=== PATIENT | male | born 1955 | race Caucasian/White ===

== ENCOUNTER 2019-11-06 15:14 | Inpatient (IN) | payer MEDICAID, OTHER, SELFPAY ==
[~2019-11-06] VITALS: Ht 165.1 cm; Wt 72.6 kg
[2019-11-06] MEDS ORDERED: PIPERACILLIN/TAZ 3.375G PREMIX 50 ML IV ONE (16:00)
[2019-11-06] MEDS ORDERED: SODIUM CHLORIDE 0.9% 1000ML BAG (SEPSIS BOLUS) IV ONE (16:00)
[2019-11-06 17:04] LABS: BASOPHILS % 0.7 % (0.0-2.0); EOSINOPHILS % 3.2 % (0.0-5.0); HEMATOCRIT. 41.1 % (42.0-52.0); HEMOGLOBIN. 13.6 g/dL (14.0-18.0); LYMPHOCYTES % 8.5 % (20.0-50.0); MEAN CORPUSCULAR HEMOGLOBIN 28.9 pg (28.0-32.0); MEAN CORPUSCULAR VOLUME 87.3 fL (80.0-94.0); MEAN PLATELET VOLUME 9.2 fl (7.4-10.4); NEUTROPHILS % 74.6 % (40.0-76.0); PLATELET 260 x1000/uL (130-400); RED BLOOD CELL COUNT 4.71 mill/uL (4.7-6.1); RED CELL DISTRIBUTION WIDTH 14.1 % (11.6-14.6)
[2019-11-06 17:08] LABS: CHLORIDE 96 mEq/L (98-107)
[2019-11-06 17:10] LABS: CLARITY URINE CLEAR (CLEAR); COLOR URINE YELLOW (YELLOW); KETONES URINE NEGATIVE (NEGATIVE); LEUKOCYTE ESTERASE URINE NEGATIVE (NEGATIVE); NITRITE URINE NEGATIVE (NEGATIVE); OCCULT BLOOD URINE NEGATIVE (NEGATIVE); PROTEIN URINE 1+ (NEGATIVE); SPECIFIC GRAVITY URINE 1.036 (1.005-1.030)
[2019-11-06 17:17] LABS: INR 1.1; PROTHROMBIN TIME 11.6 sec (9.6-11.0)
[2019-11-06] MEDS ORDERED: INSULIN REGULAR (HUMULIN R) UD 100 UNITS/ML SYR SUBCUT ONE (17:30)
[2019-11-06] MEDS ORDERED: INSULIN REGULAR (HUMULIN R) 300UNITS/3ML SUBCUT NR (17:30)
[2019-11-06] MEDS ORDERED: ACETAMINOPHEN 325MG SUPP PR ONE (19:15)
[2019-11-06] MEDS ORDERED: ACETAMINOPHEN 650MG SUPP PR ONE (19:15)
[2019-11-06] MEDS ORDERED: VANCOMYCIN 1 G PREMIX 200 ML IV ONE (19:30)
[2019-11-06 20:02] LABS: BASOPHILS % 1.4 % (0.0-2.0); EOSINOPHILS % 2.1 % (0.0-5.0); HEMATOCRIT. 39.5 % (42.0-52.0); HEMOGLOBIN. 13.2 g/dL (14.0-18.0); LYMPHOCYTES % 11.4 % (20.0-50.0); MEAN CORPUSCULAR HEMOGLOBIN 29.1 pg (28.0-32.0); MEAN CORPUSCULAR VOLUME 87.4 fL (80.0-94.0); MEAN PLATELET VOLUME 9.5 fl (7.4-10.4); MONOCYTES % 2.1 % (2.0-8.0); PLATELET 230 x1000/uL (130-400); RED BLOOD CELL COUNT 4.52 mill/uL (4.7-6.1); RED CELL DISTRIBUTION WIDTH 14.3 % (11.6-14.6)
[2019-11-06 20:09] LABS: CHLORIDE 99 mEq/L (98-107)
[2019-11-06 20:21] LABS: BG DEOXYHEMOGLOBIN 0.7 % (0.0-5.0); BG FRACTION INSPIRED OXYGEN 100; BG HCO3 ACT 26.8 mmol/L (22.0-26.0); BG METHEMOGLOBIN 0.4 % (0.0-1.5); BG OXYGEN SATURATION 99.3 % (92.0-98.5); BG OXYHEMOGLOBIN 98.9 % (94.0-97.0); BG PH 7.466 (7.350-7.450); BG PO2 230.1 mmHg (75.0-100.0); BG SAMPLE SITE RIGHT RADIAL; BG TOTAL HEMOGLOBIN 12.4 g/dL (12.0-18.0); BG VENT MODE MASK - NRB
[2019-11-06] MEDS ORDERED: DEXTROSE 50% WATER 50ML SYRINGE IV PRN (21:30)
[2019-11-06] MEDS ORDERED: ONDANSETRON HCL 4MG/2ML INJ IV PRN (21:30)
[2019-11-06] MEDS ORDERED: NA PHOS,M-B/NA PHOS,DI-BA ENEMA 118ML PR PRN (21:30)
[2019-11-06] MEDS ORDERED: DIPHENHYDRAMINE 50MG/ML VIAL IV PRN (21:30)
[2019-11-06] MEDS ORDERED: CEFTRIAXONE 1 G PREMIX 50 ML IV SCH (21:30)
[2019-11-06] MEDS ORDERED: DOCUSATE SODIUM 100MG CAPSULE PO PRN (21:30)
[2019-11-06] MEDS ORDERED: GUAIFENESIN 200MG/10ML SUGAR FREE UDC PO PRN (21:30)
[2019-11-06] MEDS ORDERED: ACETAMINOPHEN 650MG/20.3ML UDC GT PRN ×2 (21:30)
[2019-11-06] MEDS ORDERED: CLONIDINE 0.1MG TABLET PO PRN (21:30)
[2019-11-06] MEDS ORDERED: ACETAMINOPHEN 650MG SUPP PR PRN ×2 (21:30)
[2019-11-06] MEDS ORDERED: ACETAMINOPHEN 325MG TABLET PO PRN (21:30)
[2019-11-06] MEDS ORDERED: MAGNESIUM/ALUMINUM HYDROXIDE/SIMETHICONE 30ML UDC PO PRN (21:30)
[2019-11-06] MEDS ORDERED: IOHEXOL-350 100 ML BOTTLE ONE (21:31)
[2019-11-06] MEDS: ENOXAPARIN 40MG/0.4ML SYR SUBCUT SCH (22:28)
[2019-11-06] MEDS ORDERED: AZITHROMYCIN 500 MG in DEXT 5% WATER 250 ML IV SCH (23:00)
[2019-11-07 04:57] LABS: BASOPHILS % 1.1 % (0.0-2.0); EOSINOPHILS % 0.5 % (0.0-5.0); HEMATOCRIT. 37.6 % (42.0-52.0); HEMOGLOBIN. 12.3 g/dL (14.0-18.0); LYMPHOCYTES % 18.1 % (20.0-50.0); MEAN CORPUSCULAR VOLUME 88.4 fL (80.0-94.0); MEAN PLATELET VOLUME 9.2 fl (7.4-10.4); MONOCYTES % 13.7 % (2.0-8.0); NEUTROPHILS % 66.6 % (40.0-76.0); PLATELET 217 x1000/uL (130-400); RED BLOOD CELL COUNT 4.25 mill/uL (4.7-6.1); RED CELL DISTRIBUTION WIDTH 14.2 % (11.6-14.6)
[2019-11-07 05:04] LABS: CHLORIDE 103 mEq/L (98-107)
[2019-11-07 05:12] LABS: LDL CHOLESTEROL 72 mg/dL (5-100)
[2019-11-07 05:18] LABS: HDL CHOLESTEROL 30 mg/dL (40-59)
[2019-11-07 09:34] LABS: *BARBITURATES SCREEN URINE NEGATIVE (NEGATIVE); *COCAINE SCREEN URINE NEGATIVE (NEGATIVE)
[2019-11-07 09:35] LABS: *AMPHETAMINES SCREEN URINE NEGATIVE (NEGATIVE); *BENZODIAZEPINES SCREEN URINE NEGATIVE (NEGATIVE); CANNABINOID URINE SCREEN NEGATIVE (NEGATIVE); METHADONE URINE SCREEN NEGATIVE (NEGATIVE); OPIATES URINE SCREEN NEGATIVE (NEGATIVE); PHENCYCLIDINE URINE SCREEN NEGATIVE (NEGATIVE)
[2019-11-07] MEDS: BLOOD SUGAR DIAGNOSTIC STRIP TEST SCH ×4 (09:47→21:00)
[2019-11-07 11:00] VITALS: BP 136/76
[2019-11-07 12:00] VITALS: BP 112/72
[2019-11-07] MEDS: INSULIN LISPRO 100 UNITS/ML SUBCUT SCH ×3 (12:37→22:35)
[2019-11-07 16:00] VITALS: BP 104/58
[2019-11-07] MEDS ORDERED: GUAIFENESIN 600MG ER TABLET PO PRN (17:00)
[2019-11-07] MEDS ORDERED: ALBUTEROL 6.7GM HFA INHALER ORI PRN (17:00)
[2019-11-07 20:00] VITALS: BP_SYST 117
[2019-11-07] MEDS ORDERED: CEFTRIAXONE 1,000 MG in DEXTROSE 5% WATER 50 ML IV SCH ×2 (21:00→23:30)
[2019-11-07] MEDS: ENOXAPARIN 40MG/0.4ML SYR SUBCUT SCH (22:11)
[2019-11-07] MEDS: AZITHROMYCIN 250 MG in DEXT 5% WATER 250 ML IV SCH (22:33)
[2019-11-08] VITALS: BP 119/69
[2019-11-08] MEDS: BLOOD SUGAR DIAGNOSTIC STRIP TEST SCH ×4 (07:10→20:40)
[2019-11-08 08:00] VITALS: BP 154/76
[2019-11-08] MEDS: INSULIN LISPRO 100 UNITS/ML SUBCUT SCH ×4 (10:37→20:40)
[2019-11-08 12:00] VITALS: BP 152/84
[2019-11-08] MEDS: ACETAMINOPHEN 325MG TABLET PO PRN ×2 (13:09→19:54)
[2019-11-08] MEDS: IPRATROPIUM/ALBUTEROL 0.5-3(2.5)MG/3ML NEB HHN SCH ×2 (14:25→19:57)
[2019-11-08 16:00] VITALS: BP 144/77
[2019-11-08] MEDS: CEFTRIAXONE 1,000 MG in DEXTROSE 5% WATER 50 ML IV SCH (19:44)
[2019-11-08 20:00] VITALS: BP 141/74
[2019-11-08] MEDS: ENOXAPARIN 40MG/0.4ML SYR SUBCUT SCH (20:39)
[2019-11-08] MEDS: AZITHROMYCIN 250 MG in DEXT 5% WATER 250 ML IV SCH (20:39)
[2019-11-09] VITALS: BP 142/78
[2019-11-09] MEDS: IPRATROPIUM/ALBUTEROL 0.5-3(2.5)MG/3ML NEB HHN SCH ×4 (01:52→21:12)
[2019-11-09 04:00] VITALS: BP 150/82
[2019-11-09] MEDS: BLOOD SUGAR DIAGNOSTIC STRIP TEST SCH ×4 (06:16→21:00)
[2019-11-09] MEDS: INSULIN LISPRO 100 UNITS/ML SUBCUT SCH ×4 (06:16→23:16)
[2019-11-09 08:00] VITALS: BP 152/86
[2019-11-09 16:00] VITALS: BP 131/77
[2019-11-09 20:00] VITALS: BP 143/77
[2019-11-09] MEDS: CEFTRIAXONE 1,000 MG in DEXTROSE 5% WATER 50 ML IV SCH (22:50)
[2019-11-09] MEDS: AZITHROMYCIN 250 MG in DEXT 5% WATER 250 ML IV SCH (22:50)
[2019-11-09] MEDS: ENOXAPARIN 40MG/0.4ML SYR SUBCUT SCH (23:09)
[2019-11-09] MEDS: INSULIN GLARGINE UD 100 UNITS/ML SYR SUBCUT SCH (23:16)
[2019-11-10] VITALS: BP 123/74
[2019-11-10] MEDS: IPRATROPIUM/ALBUTEROL 0.5-3(2.5)MG/3ML NEB HHN SCH ×2 (01:51→09:43)
[2019-11-10 04:00] VITALS: BP 153/93
[2019-11-10] MEDS: BLOOD SUGAR DIAGNOSTIC STRIP TEST SCH ×2 (06:01→11:45)
[2019-11-10] MEDS: INSULIN LISPRO 100 UNITS/ML SUBCUT SCH ×2 (06:05→13:52)
[2019-11-10 08:00] VITALS: BP 130/79
[2019-11-10] MEDS: INSULIN GLARGINE UD 100 UNITS/ML SYR SUBCUT SCH (10:11)
[2019-11-10] MEDS ORDERED: AZIT500T3 MT (10:57)
[2019-11-10] MEDS ORDERED: INSLIS SUBCUT (10:59)
[2019-11-10 12:00] VITALS: BP 144/86
[2019-11-10 13:45] LABS: BASOPHILS % 1.2 % (0.0-2.0); HEMATOCRIT. 42.3 % (42.0-52.0); HEMOGLOBIN. 13.9 g/dL (14.0-18.0); LYMPHOCYTES % 32.6 % (20.0-50.0); MEAN CORPUSCULAR HEMOGLOBIN 28.9 pg (28.0-32.0); MEAN CORPUSCULAR VOLUME 88.1 fL (80.0-94.0); MEAN PLATELET VOLUME 9.2 fl (7.4-10.4); MONOCYTES % 8.1 % (2.0-8.0); NEUTROPHILS % 53.1 % (40.0-76.0); PLATELET 263 x1000/uL (130-400); RED CELL DISTRIBUTION WIDTH 14.2 % (11.6-14.6)
[2019-11-10 13:59] VITALS: BP 144/86
[2019-11-10 14:05] LABS: CHLORIDE 101 mEq/L (98-107)
[2019-11-10] MEDS ORDERED: AZITHROMYCIN 250 MG TABLET PO SCH (18:00)
== END 2019-11-10 14:36 | disposition home or self-care (01) | DRG 720 ==
LOC: ER 15:21 → EDBEDREQ 18:48 → MICUSO 19:13 → EDBEDREQSVC 19:38 → EDBEDREQ 19:38 → EDBEDREQTM 19:38 → EDBEDREQ 22:28 → 7WST 11-07 07:24 → 8WST 11-08 04:43
PROVIDERS: ADMIT Family Medicine; ATTEND Family Medicine
DX: A41.9 Sepsis, unspecified organism (principal); J96.01 Acute respiratory failure with hypoxia; E44.0 Moderate protein-calorie malnutrition; E66.9 Obesity, unspecified; E87.1 Hypo-osmolality and hyponatremia; E87.2 Acidosis; I25.10 Atherosclerotic heart disease of native coronary artery without angina pectoris; J18.9 Pneumonia, unspecified organism; J43.9 Emphysema, unspecified; K76.0 Fatty (change of) liver, not elsewhere classified; D72.810 Lymphocytopenia; R65.20 Severe sepsis without septic shock; L03.032 Cellulitis of left toe; R16.0 Hepatomegaly, not elsewhere classified; E86.0 Dehydration; G90.8 Other disorders of autonomic nervous system; E11.9 Type 2 diabetes mellitus without complications; I10 Essential (primary) hypertension; Z20.828 Contact with and (suspected) exposure to other viral communicable diseases; Z68.32 Body mass index [BMI] 32.0-32.9, adult
CPT/HCPCS: 36415; 36600; 71045; 71275; 73630; 74174; 80048; 80053; 80061; 80305; 81003; 82010; 82375; 82805; 82962; 83036; 83605; 83880; 84145; 84484; 84550; 85025; 87635; 93005; 94640; 97116; 97162; 99291; J0456; J0696; J1650; J1815; J2543; J3370; J7030; J7060; Q9967